=== PATIENT | female | born 1945 | race Caucasian/White ===

== ENCOUNTER 2022-04-02 08:03 | Outpatient (CLI) | payer MEDICARE, OTHER | END 2022-04-02 08:04 | disposition home or self-care (01) | LOC: BURRAD 08:03 | PROVIDERS: ATTEND Registered Nurse Community Health | DX: R22.31 Localized swelling, mass and lump, right upper limb (principal); R09.89 Other specified symptoms and signs involving the circulatory and respiratory systems; J98.4 Other disorders of lung | CPT/HCPCS: 71046 ==